=== PATIENT | male | born 1950 | race Caucasian/White ===

== ENCOUNTER 2017-05-09 12:26 | Day surgery (SDC) | payer MEDICARE, OTHER ==
[~2017-05-09 12:26] MED LIST: NORMAL SALINE 1,000 ML IV PRN; ceFAZolin SODIUM 2 GM in DEXTROSE 5 % IN WATER 50 ML IV PRN
--- OUTSIDE RECORDS SUMMARY | 2017-05-09 12:30 | XMS REPORT | Continuity of Care Document ---
:1950 Author Organization [facility] ([facility]) Address [address] [place] [address] Phone [phone] Care Team Providers Name Role Phone Jarod Crane Primary Care Provider [phone] Source Comments This disclosure is being made pursuant to the Care Everywhere program, applicable federal and state laws, and may not contain all informaitonavailable regarding this patient.[facility] ([facility]) Active Allergies and Adverse Reactions No Known Allergies Current Medications Prescription Sig. Disp. Refills Start Date End Date Status escitalopram (LEXAPRO) 10 Take 10 mg by mouth Active mg tablet daily. nortriptyline (PAMELOR) Take 25 mg by mouth Active 25 mg capsule at bedtime. tamsulosin (FLOMAX) 0.4 Take 0.4 mg by Active mg ER capsule mouth daily. aspirin 81 mg EC tablet Take 81 mg by mouth Active daily. levothyroxine 100 mcg Take 100 mcg by Active tablet mouth every morning before breakfast. ATORVASTATIN CALCIUM Take by mouth Active (LIPITOR PO) daily. 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 ACL injury tear 07/22/2013 Fracture of C6 vertebra, closed 05/23/2013 Fracture of left ulna, shaft 05/23/2013 Right clavicle fracture 05/23/2013 Pelvic hematoma 05/23/2013 Abdominal pain, RUQ (right upper quadrant) 12/05/2010 Resolved Problems Problem Noted Date Resolved Date Knee pain 06/05/2013 07/22/2013 Most Recent Encounters Date Type Specialty Providers Description 03/23/2017 Lab Requisition Pathology [facility] Dx: Basal cell carcinoma of skin of other parts of face Social History Tobacco Use Types Packs/Day Years Used Date Former Smoker 1 5 Quit: 11/26/1969 Smokeless Tobacco: Never Used Tobacco Cessation:Counseling Given: Yes Comments: Last Filed Vital Signs Vital Sign Reading Time Taken Blood Pressure 127/82 03/03/2014 2:48 PM CDT Pulse 82 03/03/2014 2:48 PM CDT Temperature 36.6 C (97.9 F) 03/03/2014 2:48 PM CDT Respiratory Rate 16 05/23/2013 8:36 AM CDT Height 1.803 m (5' 10.98") 03/03/2014 2:48 PM CDT Weight 86.637 kg (191 lb) 03/03/2014 2:48 PM CDT Body Mass Index 26.65 03/03/2014 2:48 PM CDT Oxygen Saturation 97% 05/23/2013 8:36 AM CDT Plan of Care Health Maintenance Due Date Last Done Comments HCV Screening 1950 Hepatitis B Vaccine (1 of 3 - Primary Series) 1950 Tdap Vaccine 1959 Lipid Disorder Screening 1966 Td Vaccine 1966 Colonoscopy 1998 Prostate Cancer Screening 1998 Zoster Vaccine 2008 Pneumococcal Vaccine (1 of 2 - PCV13) 2013 Influenza Vaccine: Seasonal (Season Ended) 2017 Results from Last 3 Months DERMATOPATHOLOGY EXAM (03/21/2017 9:00 AM) Component Value Range Case Report Surgical Pathology Case: [id number] Authorizing Provider:[facility] Collected: 03/21/2017 09:00 AM Pathologist: Vinicio Stevens MD Received:03/23/2017 01:55 PM Specimen:Skin, other, specify, R Jew Diagnosis Skin, right zoroastrian, shave: Compound nevus. Focal features suggestive of verruca plana. Clinical Information Tissue source/site: Shave R zoroastrian. Pertinent clinical history and findings: 7 mm pearly pap. Clinical differential diagnosis: BCC. Gross Description A.Received in formalin, in a container labeled Yaw Hayden Jr., date of , and "R Jew", is a 0.8 x 0.6 x 0.1 cm dumont shave biopsy.The specimen is inked, bisectedand submitted entirely in A1. ATC/cja Microscopic Description Sections show a skin shave demonstrating a nested proliferation of bland-appearing melanocytes focally intraepidermally situated at the dermal-epidermal junction overlying nested melanocytes within th e dermis exhibiting maturation with descent, downward periadnexal tracking, and collagen intercalation, transected at specimen base.Focal intraepidermal hypergranulosis featuring coarse keratohyaline granules is noted. Performed by:Nnamdi Spence MD, R4/tkr I have personally reviewed this case and edited the report as necessary. Vinicio Stevens MD Specimen Skin - Skin, other, specify
[2017-05-09] MEDS ORDERED: NORMAL SALINE 1,000 ML IV ONE (13:00)
--- NOTE | 2017-05-09 13:42 | OR ---
Operative Report - Dictated Report Narrative: Location: Main OR Anesthesia: MAC Preoperative Diagnosis: Abnormal ultrasound finding Postoperative Diagnosis: Mild BPH with obstructive change, no debris or shadowing filling defect Procedure: #1 flexible cystoscopy with washing for cytology and culture Indications: 66-year-old male with BPH. Ultrasound suggested increased residual and possible debris/shadowing in the bladder. Cystoscopy indicated to ensure nothing in bladder and to assess for BPH with obstruction. Description: Consent obtained. Placed in the supine position. Prepped and draped. Time-out taken . Rubens anesthesia administered. Flexible scope inserted into the urethra and navigated to the bladder with ease. Boyd cystoscopy without tumor stones or suspicious lesions. Capacity is increased. There is no heavy obstructive change i.e. no significant diverticula with some hypertrophy of the detrusor. Washing obtained for cytology and culture Ureters normal in number and position. Normal bladder neck without much of an intravesical prostate. Prostate itself is medium with some bilobar hypertrophy somewhat obstructing. Normal urethra EBL: 0 Specimen: Washing was obtained sent for cytology and culture Condition: tolerate procedure Important Findings: Some early BPH-like change with increased bladder capacity. FOLLOW UP: 6 months UA/flow/BVI
[2017-05-09 17:10] VITALS: BP 120/70
== END 2017-05-09 12:27 | disposition home or self-care (01) ==
LOC: AMB 12:26
PROVIDERS: ATTEND Urology
PROC: 3E1K88X Irrigation of Genitourinary Tract using Irrigating Substance, Via Natural or Artificial Opening Endoscopic, Diagnostic (ICD-10-PCS; 2017-05-09)
PROC: 0TJB8ZZ Inspection of Bladder, Via Natural or Artificial Opening Endoscopic (ICD-10-PCS; principal; 2017-05-09 13:35)
DX: N40.0 Benign prostatic hyperplasia without lower urinary tract symptoms (principal); Z68.26 Body mass index [BMI] 26.0-26.9, adult; Z87.891 Personal history of nicotine dependence

== ENCOUNTER 2017-07-09 17:17 | Emergency (ER) | payer MEDICARE, OTHER ==
[2017-07-09 17:29] VITALS: BP 134/74
--- OUTSIDE RECORDS SUMMARY | 2017-07-09 17:41 | XMS REPORT | Summary of Care ---
:1950 Author Organization [facility] Address [address] [place] [address] Care Team Providers Name Role Phone Physician, Primary Care Primary Care Physician Unavailable Encounter Date(s): 04/25/17 - 04/25/17 [facility], [address] [place] [id number] Discharge Diagnosis: Abnormal findings on diagnostic imaging of urinary organs Discharge Diagnosis: Encounter for screening for malignant neoplasm of prostate Discharge Diagnosis: Relative Impotence Discharge Diagnosis: Enlarged prostate with lower urinary tract symptoms Discharge Disposition: 01 Discharged to Home or Self Care Attending Physician: Zacarias Hirsch MD Referring Physician: Zacarias Hirsch MD Vital Signs Most recent to oldest [Reference Range]: 1 Blood Pressure [90-130/60-90 mmHg] 102/68mmHg (04/25/17 10:59 AM) Mean Arterial Pressure, Cuff 79 mmHg (04/25/17 10:59 AM) Most recent to oldest [Reference Range]: 1 Height/Length Measured 180 cm (04/25/17 10:59 AM) Weight Dosing 86.60 kg1 (04/25/17 11:01 AM) Weight Measured 86.6 kg (04/25/17 10:59 AM) BSA Measured 2.06 m2 (04/25/17 10:59 AM) Body Mass Index Measured 26.73 kg/m2 (04/25/17 10:59 AM) 1Result Comment: This result was because the dosing weight was either not entered or it is>30 days old. This result is based off: Weight Measured April 25, 2017 10:59:00 CDT by Sarita Rodríguez, Sound Controller Problem List Condition Effective Dates Status Health Status Informant Abnormal findings on diagnostic Active imaging of urinary organs(Confirmed) Enlarged prostate with lower urinary Active tract symptoms(Confirmed) Encounter for screening for malignant Active neoplasm of prostate(Confirmed) Relative Impotence(Confirmed) Active Allergies, Adverse Reactions, Alerts No Known Medication Allergies Medications aspirin 81 mg oral tablet tab(s), Oral, Daily, 0 Refill(s) Start Date: 03/17/14 Status: Orderedatorvastatin 40 mg oral tablet 1 tab(s), Oral, Daily, # 90 tab(s), 0 Refill(s), Start Date: 04/25/17 11:00:00 CDT Start Date: 04/25/17 Status: OrderedCialis 5 mg oral tablet 1 tab(s), Oral, Daily, # 90 tab(s), 3 Refill(s), Start Date: 03/17/15 12:33:00 CDT, Pharmacy: [facility] Start Date: 03/17/15 Stop Date: 04/05/16 Status: CompletedCialis 5 mg oral tablet 1 tab(s), Oral, Daily, # 90 tab(s), 3 Refill(s), Start Date: 04/05/16 11:21:27 CDT, Pharmacy: [facility] Start Date: 04/05/16 Status: OrderedCialis 5 mg oral tablet 1 tab(s), Oral, Daily, PRN for erectile dysfunction, # 30 tab(s), 0 Refill(s), samples given to patient (Rx), [id number], 10/06/16 Start Date: 04/16/14 Stop Date: 04/05/16 Status: DiscontinuedCialis 5 mg oral tablet 1 tab(s), Oral, Daily, PRN for erectile dysfunction, 0 Refill(s) Start Date: 04/16/14 Stop Date: 04/16/14 Status: DiscontinuedFlomax 0.4 mg oral capsule 1 cap(s), Oral, Daily, # 90 cap(s), 4 Refill(s), Start Date: 03/17/15 12:33:00 CDT, Pharmacy: [place], [place] Start Date: 03/17/15 Stop Date: 03/17/15 Status: DiscontinuedFlomax 0.4 mg oral capsule cap(s), Oral, Daily, 0 Refill(s) Start Date: 03/17/14 Stop Date: 03/17/15 Status: DiscontinuedFlomax 0.4 mg oral capsule 1 cap(s), Oral, Daily, # 90 cap(s), 3 Refill(s), Pharmacy: [facility] Start Date: 04/16/14 Stop Date: 03/17/15 Status: DiscontinuedFlomax 0.4 mg oral capsule 1 cap(s), Oral, Daily, # 30 cap(s), 11 Refill(s), [facility] Start Date: 03/18/14 Stop Date: 04/16/14 Status: CompletedLexapro 10 mg oral tablet tab(s), Oral, Daily, 0 Refill(s) Start Date: 03/17/14 Status: OrderedMobic 7.5 mg oral tablet 1 tab(s), Oral, Daily, # 30 tab(s), 2 Refill(s), Start Date: 01/27/16 10:33:00 [employer], Pharmacy: [place], [place] Start Date: 01/27/16 Status: Orderednortriptyline 25 mg oral capsule cap(s), Oral, TID, 0 Refill(s) Start Date: 03/17/14 Status: Orderedomeprazole 40 mg oral delayed release capsule TAKE ONE CAPSULE BY MOUTH ONCE DAILY BEFORE A MEAL Special Instructions: TAKE ONE CAPSULE BY MOUTH ONCE DAILY BEFORE A MEAL Start Date: 04/25/17 Status: Orderedsimvastatin 10 mg oral tablet tab(s), Oral, HS, 0 Refill(s) Start Date: 03/17/14 Status: OrderedSynthroid 50 mcg (0.05 mg) oral tablet tab(s), Oral, Daily, 0 Refill(s) Start Date: 03/17/14 Status: Orderedtamsulosin 0.4 mg oral capsule 1 cap(s), Oral, Daily, # 90 cap(s), 0 Refill(s), Start Date: 04/25/17 11:00:00 CDT Start Date: 04/25/17 Status: Ordered Results No data available for this section Immunizations No data available for this section Procedures Procedure Date Related Diagnosis Body Site Cholecystectomy Social History No data available for this section Assessment and Plan No data available for this section
--- NOTE | 2017-07-09 18:13 | ERNOTE ---
Medical Problem HPI - Narrative Date of Service: 07/09/17 - General Chief Complaint: Laceration Time Seen by Provider: 07/09/17 17:35 Source: patient, RN notes reviewed Exam Limitations: no limitations - Immun/Allergies/Home Medications Immunizations: IMMUNIZATION HX Immunizations Up to Date Yes Allergies/Adverse Reactions: Allergies No Known Allergies Allergy (Verified 07/09/17 17:29) Home Medications: HOME MEDICATIONS Aspirin [Aspirin Enteric Coated] 81 mg PO DAILY 05/22/13 [Last Taken Unknown] Escitalopram Oxalate [Lexapro] 10 mg PO DAILY 05/22/13 [Last Taken Unknown] Nortriptyline HCl [Pamelor] 25 mg PO TID 05/22/13 [Last Taken Unknown] Levothyroxine Sodium [Synthroid] 50 mcg PO DAILY 05/08/17 [Last Taken Unknown] Simvastatin [Zocor] 10 mg PO HS 05/08/17 [Last Taken Unknown] Tadalafil [Cialis] 5 mg PO DAILY 05/08/17 [Last Taken Unknown] - History of Present History Narrative: 66 y/o male with a laceration to his left distal thumb. He cut himself with a table saw. This happened at home just [employer]. He has cleaned and dressed the wound. His last tetanus vaccination was in 2012. Date (Duration): 07/08/17 Review of Systems - Review of Systems Constitutional: Absent: recent illness, fever, chills EYE: Present: no symptoms reported ENT: Present: no symptoms reported Respiratory: Present: no symptoms reported Cardiology: Present: no symptoms reported Gastrointestinal/Abdominal: Present: no symptoms reported Genitourinary: Present: no symptoms reported Musculoskeletal: Absent: joint pain, joint swelling Skin: Absent: lesions, lumps, change in color Neurological: Absent: weakness, numbness, tingling Endocrine: Present: no symptoms reported Hematologic/Lymphatic: Absent: easy bruising, easy bleeding Psych: Present: no symptoms reported - Patient's Past Medical History Patient History - Medical: Hypothyroidism, Other Patient History - Cardiac/Respiratory: No pertinent hx Patient History - Cancer: Melanoma, Surgical Treatment Patient History - Surgical Procedures: Cholecystectomy, Other Patient History - Other: None - Family History Father Family History - Medical: No pertinent hx Family History - Cardiac/Respiratory: No pertinent hx Family History - Cancer: Other - Social History Living Situations: home Abuse History: No History of abuse Psych History: Hx of Anxiety Smoking Status: Never smoker Alcohol Use: occasionally Drug Use: none - Immunizations Immunizations Up to Date: Yes Physical Exam - Physical Exam General Appearance: Present: wd/wn, alert, no apparent distress Respiratory: Present: no respiratory distress, no accessory muscle use Extremity Exam: Present: normal except - - amputation of distal dorsal aspect of left thumb with approximately 1/3 of nail removed, bleeding controlled, normal range of motion, no edema Neurological Exam: Present: alert, oriented, normal mood/affect, no motor/ sensory deficits Skin Exam: Present: normal color, warm/dry ED Progress - Vital Signs Patient's Vital Signs:: I have reviewed the patient's vital signs. Vital Signs: Vital Signs 07/09/17 17:22 Temperature 36.4 C L Pulse Rate 72 Respiratory 14 Rate Blood Pressure 134/74 O2 Sat by Pulse 93 Oximetry - X-Ray X-Ray #1 X-Ray: finger - Left thumb, no acute osseous abnormality noted Interpretation: Interp. by me - Progress/Reassessment Chief Complaint: Laceration Progress:: Improved Departure - Departure Clinical Impression: Laceration of thumb with damage to nail Qualifiers: Encounter type: initial encounter Foreign body presence: without foreign body Laterality: left Qualified Code(s): S61.112A - Laceration without foreign body of left thumb with damage to nail, initial encounter Disposition: Home self-care Condition: Good Instructions: Laceration Care, Adult, [place] Additional Instructions: Clean and dress wound as needed OK to take the pain medication you have at home as directed on label - may cause constipation Can take Tylenol or Advil for less severe pain Keep elevated, cold compresses Referrals: Jarod Krishna MD [Primary Care Provider] -
== END 2017-07-09 18:17 | disposition home or self-care (01) ==
LOC: ER 17:17
DX: S61.112A Laceration without foreign body of left thumb with damage to nail, initial encounter (principal); Z85.820 Personal history of malignant melanoma of skin; E03.9 Hypothyroidism, unspecified; W27.8XXA Contact with other nonpowered hand tool, initial encounter